=== PATIENT | male | born 1940 | race Caucasian/White ===

== ENCOUNTER → 2017-09-18 11:16 | Outpatient (CLI) | payer MEDICARE, OTHER, SELFPAY ==
--- NOTE | 2017-09-18 | DI.RAD.S_ITS ---
PROCEDURE: XR CERVICAL SPINE 2V OR 3V INDICATIONS: CERVICALGIA TECHNIQUE: 3 view(s) of the cervical spine were acquired. COMPARISON: None. FINDINGS: Bones: No fractures or dislocations to the C7 level. The lateral masses of C1 appear intact on the odontoid view. Lateral masses more distally appear markedly hypertrophic, left greater than right. There is slight anterolisthesis at C4-5. Degenerative disc disease and spondylosis C5-6 and C6-7. No suspicious bony lesions. Soft tissues: No prevertebral soft tissue swelling. Mild carotid artery calcifications. IMPRESSION: Degenerative cervical spine disease, most marked at C5-6 and C6-7, slight anterolisthesis at C4-5. Dictated by: John Adam M.D. on 09/18/2017 at 11:49 Approved by: John Adam M.D. on 09/18/2017 at 11:51
== END ==
PROVIDERS: PCP Internal Medicine; Visit Provider Internal Medicine
DX: M50.322 Other cervical disc degeneration at C5-C6 level (principal); M43.12 Spondylolisthesis, cervical region
CPT/HCPCS: 72040

== ENCOUNTER 2020-12-21 12:25 | Emergency (ER) | payer MEDICARE, OTHER, SELFPAY ==
[2020-12-21 12:31] VITALS: BP 147/77; PULSE 83; PULSE 98; RESP 19; TEMP 36.6; O2SAT 95; O2SAT 96; BMI 26.6
[2020-12-21 12:32] VITALS: BP 147/77; PULSE 94; O2SAT 96
[2020-12-21] MEDS: ACETAMINOPHEN 325 MG TABLET 975 MG PO (12:43)
[2020-12-21] MEDS: methylPREDNISolone 125 MG/2 ML VIAL IV (12:44)
--- NOTE | 2020-12-21 12:44 | ED.ALLEREA ---
HPI - Allergic Reaction General Chief complaint: Allergic Reaction Stated complaint: Stung by hornets- severely allergic Time Seen by Provider: 12/21/20 12:34 History of Present Illness HPI narrative: Patient is an 80-year-old male who presents after multiple hornet stings. He says previously he has had allergic reaction to it but does not sound like it was anaphylaxis. He was outside hiking he bent down to look at a mushroom when he got stung at least 6 times. The event happened about 20 minutes ago. He still had some stingers in him which have been pulled. He has no difficulty swallowing he has no lip swelling no tongue swelling overall is feeling okay. He is having some mild pain. Denies any chest pain palpitations or shortness of breath. Related Data Allergies Allergy/AdvReac Type Severity Reaction Status Date / Time simvastatin [SIMVASTATIN] AdvReac Mild NAUSEA Verified 12/21/20 12:41 Review of Systems Review of Systems Narrative: GENERAL: Denies chills, fatigue, malaise, fever, sweats, travel HEENT: Denies sinus pain, ear pain, sore throat, difficulty swallowing, neck pain RESPIRATORY: Denies dyspnea, cough, wheezing, hemoptysis, sputum. CARDIOVASCULAR: Denies chest pain, palpitations, orthopnea, edema GASTROINTESTINAL: Denies nausea, vomiting, abdominal pain, diarrhea, constipation, melena. : Denies dysuria, frequency, incontinence, hematuria, urinary retention, flank pain. MUSCULOSKELETAL: Denies weakness, joint pain, or bony pain SKIN: Multiple bee sting NEUROLOGIC: Denies weakness, dizziness, headache, numbness, change in speech, confusion PSYCHIATRIC: No concerning psychosocial issues. 12 point review of systems is negative except for those stated above and HPI Patient History Social History Smoking Status: Unknown if ever smoked Exam Initial Vital Signs Initial Vital Signs: Vital Signs Temperature 97.8 F 12/21/20 12:31 Pulse Rate 83 12/21/20 12:31 Respiratory Rate 19 12/21/20 12:31 Blood Pressure 147/77 H 12/21/20 12:31 Pulse Oximetry 95 12/21/20 12:31 GENERAL: Alert well-appearing 80-year-old maleand in no acute distress. HEENT: Head atraumatic,EOMI, pupils reactive, face symmetric, moist mucous membranes, no visualized lip swelling tongue swelling CARDIOVASCULAR: Regular rate and rhythm without murmurs, rubs or gallops. RESPIRATORY: Breath sounds equal bilaterally, no wheezes rales or rhonchi. No stridor ABDOMEN: Soft, nontender. Normoactive bowel sounds all 4 quadrants. No guarding or rebound. EXTREMITIES: Normal range of motion, no clubbing or edema. Neurovascularly intact NEUROLOGICAL: Alert and oriented x4.Normal gait and speech. SKIN: Stinger in the left middle finger on dorsal side distally, left upper arm sting, forehead sting Course Orders Ordered: Discontinued Medications Acetaminophen (Acetaminophen 325 Mg Tablet) 975 mg PO NOW ONE Stop: 12/21/20 12:40 Last Admin: 12/21/20 12:43 Dose: 975 mg Documented by: SAMARA Methylprednisolone (Methylprednisolone 125 Mg/2 Ml Vial) 125 mg IV NOW ONE Stop: 12/21/20 12:39 Last Admin: 12/21/20 12:44 Dose: 125 mg Documented by: SAMARA Vital Signs Vital signs: Vital Signs - 8 hr 12/21/20 12:31 12/21/20 12:32 12/21/20 13:00 Temperature 97.8 F Pulse Rate 98 H 94 H 80 Respiratory Rate 19 20 Blood Pressure 147/77 H 147/77 H 137/73 Pulse Oximetry 96 96 94 12/21/20 13:30 Temperature Pulse Rate 76 Respiratory Rate 20 Blood Pressure 139/68 Pulse Oximetry 96 MDM - Allergic Reaction MDM Narrative Medical decision making narrative: Patient is monitored in the emergency department no sign of anaphylaxis. He is given Tylenol for pain and 1 dose of Solu-Medrol to help with some minimal swelling at sting or sites this time feels ready and able to go home. Discharge Plan Departure Patient Disposition: Home Clinical Impression: Accidental bee sting Instructions: DI for Insect Bites and Stings Activity Restrictions/Additional Instructions: *You have been diagnosed with multiple bee sting *What to do: At this time no sign of severe allergic reaction. Please continue to monitor. You may notice some swelling and redness at sites of stings. May put ice on 20-30 minutes at a time. *Continue to take medications as directed Tylenol 650 mg every 4-6 hours if needed for [id number] pain Benadryl 25mg every 6 hours if needed for itching *Follow up with your primary care provider in 2-3 days *Return to ER if you should have increasing swelling, redness, difficulty breathing lip swelling tongue swelling difficulty swallowing or any new, worsening or concerning symptoms Referrals: Osbaldo Pitts MD [Primary Care Provider] -
[2020-12-21 13:00] VITALS: BP 137/73; PULSE 80; RESP 20; O2SAT 94
[2020-12-21 13:30] VITALS: BP 139/68; PULSE 76; RESP 20; O2SAT 96
--- NOTE | 2020-12-21 13:42 | PC.NURSE ---
pt was discharged in [facility].
== END 2020-12-21 13:42 | disposition home or self-care (01) ==
PROVIDERS: Emergency Provider Emergency Medicine; PCP Internal Medicine
DX: T63.441A Toxic effect of venom of bees, accidental (unintentional), initial encounter (principal)
CPT/HCPCS: 36415; 96374; 99284; J2930

== ENCOUNTER → 2021-08-03 08:35 | Outpatient (CLI) | payer MEDICARE, BC, SELFPAY ==
[2021-08-03 09:20] LABS: Hematocrit 42.7 % (41-53); Hemoglobin 14.6 g/dL (13.5-17.5); Mean Corpuscular HGB Conc 34.3 % (30-36); Mean Corpuscular Hemoglobin 30.2 PG (26-34); Mean Corpuscular Volume 88.3 fL (80-100); Platelet Count 253 X10^3/uL (150-400); Red Blood Cell Count 4.83 X10^6/uL (4.5-5.9); Red Cell Distribution Width 13.2 % (11.6-14.8); White Blood Cell Count 8.5 X10^3/uL (4.5-11.0)
[2021-08-03 09:46] LABS: Alanine Aminotransferase 20 IU/L (<50); Albumin 4.1 g/dL (3.5-5.0); Albumin Globulin Ratio 1.5 (1.0-2.8); Alkaline Phosphatase 67 U/L (38-126); Aspartate Aminotransferase 27 IU/L (17-59); BUN Creatinine Ratio 21.6 (6-22); Bilirubin Total 0.6 mg/dL (0.2-1.3); Blood Urea Nitrogen 25 mg/dL (9-20); Calcium 8.7 mg/dL (8.4-10.2); Carbon Dioxide 27 mmol/L (22-32); Chloride 106 mmol/L (98-107); Cholesterol 135 mg/dL (140-199); Estimated Glomerular Filt Rate > 60 mL/min (>60); Globulin 2.7 g/dL (1.7-4.1); Glucose 94 mg/dL (80-110); HDL Cholesterol 39 mg/dL (40-60); LDL Cholesterol Calculated 82 mg/dL (<100); Potassium 4.3 mmol/L (3.4-5.1); Sodium 140 mmol/L (137-145); Total Protein 6.8 g/dL (6.3-8.2); Triglycerides 68 mg/dL (35-150)
[2021-08-03 09:48] LABS: HEMOLYSIS 61 (0-50)
[2021-08-03 10:04] LABS: TSH w/ Reflex to FT4 1.41 uIU/mL (0.47-4.68)
== END ==
PROVIDERS: PCP Internal Medicine; Referring Provider Internal Medicine; Visit Provider Internal Medicine
DX: I10 Essential (primary) hypertension (principal); E78.2 Mixed hyperlipidemia; N13.8 Other obstructive and reflux uropathy; N40.1 Benign prostatic hyperplasia with lower urinary tract symptoms
CPT/HCPCS: 36415; 80053; 80061; 84443; 85027

== ENCOUNTER → 2022-02-07 16:20 | Outpatient (CLI) | payer MEDICARE, BC, SELFPAY ==
[2022-02-07 17:10] LABS: Hematocrit 45.2 % (41-53); Hemoglobin 15.4 g/dL (13.5-17.5); Mean Corpuscular HGB Conc 34.1 % (30-36); Mean Corpuscular Hemoglobin 29.9 PG (26-34); Mean Corpuscular Volume 87.5 fL (80-100); Platelet Count 288 X10^3/uL (150-400); Red Blood Cell Count 5.17 X10^6/uL (4.5-5.9); Red Cell Distribution Width 13.3 % (11.6-14.8); White Blood Cell Count 7.8 X10^3/uL (4.5-11.0)
[2022-02-07 17:19] LABS: Alanine Aminotransferase 42 IU/L (<50); Albumin 4.4 g/dL (3.5-5.0); Albumin Globulin Ratio 1.6 (1.0-2.8); Alkaline Phosphatase 86 U/L (38-126); Amylase 64 U/L (30-110); Aspartate Aminotransferase 33 IU/L (17-59); BUN Creatinine Ratio 16.3 (6-22); Bilirubin Total 0.9 mg/dL (0.2-1.3); Blood Urea Nitrogen 23 mg/dL (9-20); Calcium 8.9 mg/dL (8.4-10.2); Carbon Dioxide 28 mmol/L (22-32); Chloride 100 mmol/L (98-107); Estimated Glomerular Filt Rate 50 mL/min (>60); Globulin 2.8 g/dL (1.7-4.1); Glucose 104 mg/dL (80-110); HEMOLYSIS < 15 (0-50); Lipase 73 U/L (23-300); Potassium 3.8 mmol/L (3.4-5.1); Sodium 140 mmol/L (137-145); Total Protein 7.2 g/dL (6.3-8.2)
== END ==
PROVIDERS: PCP Internal Medicine; Referring Provider Internal Medicine; Visit Provider Internal Medicine
DX: R11.0 Nausea (principal)
CPT/HCPCS: 80053; 82150; 83690; 85027

== ENCOUNTER 2022-02-14 14:35 | Emergency (ER) | payer MEDICARE, BC, SELFPAY ==
[2022-02-14] VITALS (10 sets, daily range): BP systolic 117–138; BP diastolic 58–68; PULSE 70–82; RESP 15–40; TEMP 36.5; O2SAT 96–100; BMI 25.4
--- NOTE | 2022-02-14 14:54 | DI.RAD.S_ITS ---
PROCEDURE: XR CHEST 1V INDICATIONS: lightheadedness TECHNIQUE: One view of the chest was acquired. COMPARISON: None. FINDINGS: Surgical changes and devices: None. Lungs and pleura: Lungs are clear. No pleural effusions or pneumothorax. Mediastinum: Mediastinal contours appear normal. Heart size is normal. Bones and chest wall: No suspicious bony lesions. Overlying soft tissues appear unremarkable. IMPRESSION: Normal for age, source of current lightheadedness symptoms is not seen. Dictated by: Shola Yost M.D. on 02/14/2022 at 15:53 Approved by: Shola Yost M.D. on 02/14/2022 at 15:54
--- NOTE | 2022-02-14 15:00 | DI.RAD.S_ITS ---
PROCEDURE: XR KUB INDICATIONS: constipation TECHNIQUE: One view of the abdomen acquired. COMPARISON: None. FINDINGS: Surgical changes and devices: None. Bowel: Bowel gas pattern is normal except for mild generalized colonic obstipation. Soft tissues: No suspicious abdominal calcifications. Visualized solid organ contours appear normal in size. Bones: No suspicious bony lesions. IMPRESSION: Mild generalized colonic obstipation. No obstruction suspected. Dictated by: Shola Yost M.D. on 02/14/2022 at 15:54 Approved by: Shola Yost M.D. on 02/14/2022 at 15:54
[2022-02-14] MEDS: FLEETS ENEMA 1 EACH PR (16:23)
--- NOTE | 2022-02-14 16:26 | ED_ITS ---
HPI - Abdominal Pain General Chief Complaint: Dizziness Stated Complaint: constipation x2 wks, low BP, dizziness Time Seen by Provider: 02/14/22 14:53 Source: patient Mode of arrival: Ambulatory History of Present Illness HPI narrative: 81-year-old male presenting with constipation in the setting of recent viral syndrome with taking multiple doses of ondansetron for a prolonged period of time. Patient reports that he has had only small volume hard stools over the last several days, no significant stool in the last 2 weeks. No significant abdominal pain. Patient called in to his outpatient provider and referred him to the emergency department. Patient also reports that he has had intermittently low blood pressures at home, patient arrives with normal range blood pressures. No syncope or vertiginous symptoms noted. Patient does report he is felt intermittently lightheaded. Related Data Home Medications Medication Instructions Recorded Confirmed omeprazole magnesium 20 mg 20 mg PO DAILY 08/02/21 02/07/22 tablet,delayed release (Prilosec OTC) Previous Rx's Medication Instructions Recorded rosuvastatin 10 mg tablet 10 mg PO DAILY #90 tabs 08/02/21 tamsulosin 0.4 mg capsule 0.4 mg PO BEDTIME #90 caps 08/02/21 valsartan 320 1 tab PO DAILY #90 tabs 08/02/21 mg-hydrochlorothiazide 25 mg tablet ondansetron 4 mg disintegrating 4 mg PO Q8H PRN nausea and 02/07/22 tablet vomiting #20 tabs Allergies Allergy/AdvReac Type Severity Reaction Status Date / Time simvastatin [SIMVASTATIN] AdvReac Mild NAUSEA Verified 02/14/22 14:43 Review of Systems Review of Systems Narrative: Constitutional, Eyes, ENT, Pulmonary, Cardiovascular, Gastrointestinal, Renal, Endocrine, Genitourinary, Musculoskeletal, Neurologic, Skin, and Psychiatric systems were reviewed and negative unless indicated in the HPI above. 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 Nursing note reviewed Constitutional: interactive HENT: Moist mucous membranes EYES: No scleral icterus NECK: no masses CV: Well perfused peripherally, no cyanosis present PULM: Unlabored respirations, symmetric chest rise ABD: Non-distended Rectal: No hard stool ball in the rectal vault noted MS: No gross deformities, no asymmetric edema noted SKIN: Warm and dry. PSYCH: Appropriate affect NEURO: Follows simple commands, moves extremities, interactive with exam Initial Vital Signs Initial Vital Signs: Vital Signs Temperature 97.7 F 02/14/22 14:43 Pulse Rate 82 02/14/22 14:43 Respiratory Rate 19 02/14/22 14:43 Blood Pressure 126/68 02/14/22 14:43 Pulse Oximetry 97 02/14/22 14:43 Oxygen Delivery Method 02/14/22 14:43 Course Orders Ordered: Discontinued Medications Sodium Chloride (Normal Saline 0.9%) 1,000 mls @ 150 mls/hr IV CONT KOTA Magnesium Citrate (Magnesium Citrate 300 Ml Solution) 150 ml PO NOW ONE Stop: 02/14/22 15:02 Last Admin: 02/14/22 16:24 Dose: Not Given Documented By: NR Sodium Biphosphate/Sodium Phosphate (Fleets Enema) 1 each OK NOW ONE Stop: 02/14/22 15:02 Last Admin: 02/14/22 16:23 Dose: 1 each Documented By: NR Vital Signs Vital signs: Vital Signs - 8 hr 02/14/22 14:43 Temperature 97.7 F Pulse Rate 82 Respiratory Rate 19 Blood Pressure 126/68 Pulse Oximetry 97 Oxygen Delivery Method Room Air MDM - Abdominal Pain Lab Data Result diagrams: 02/14/22 15:50 02/14/22 15:50 Labs: Lab Results 02/14/22 02/14/22 02/14/22 Range/Units 15:50 15:50 15:50 WBC 15.0 H (4.5-11.0) X10^3/uL RBC 4.70 (4.5-5.9) X10^6/uL Hgb 13.9 (13.5-17.5) g/dL Hct 40.8 L (41-53) % MCV 86.9 (80-100) fL MCH 29.5 (26-34) PG MCHC 34.0 (30-36) % RDW 12.9 (11.6-14.8) % Plt Count 282 (150-400) X10^3/uL Neut % (Auto) 82.1 H (50-75) % Lymph % (Auto) 9.8 L (25-40) % [place] % (Auto) 7.0 (3-14) % Eos % (Auto) 0.8 L (2-4) % Baso % (Auto) 0.3 (0-2) % Neut # (Auto) 06282 H (0529-3997) /uL Lymph # (Auto) 1500 (4512-6649) /uL [place] # (Auto) 1100 H (0-900) /uL Eos # (Auto) 100 (0-450) /uL Baso # (Auto) 0 (0-100) /uL Sodium 138 (137-145) mmol/L Potassium 3.8 (3.4-5.1) mmol/L Chloride 104 (98-107) mmol/L Carbon Dioxide 24 (22-32) mmol/L BUN 26 H (9-20) mg/dL Creatinine 1.18 (0.66-1.25) mg/dL Estimated GFR > 60 (>60) mL/min BUN/Creatinine Ratio 22.0 (6-22) Glucose 83 (80-110) mg/dL Calcium 8.7 (8.4-10.2) mg/dL Total Bilirubin 0.7 (0.2-1.3) mg/dL AST 22 (17-59) IU/L ALT 24 (<50) IU/L Alkaline Phosphatase 76 (38-126) U/L Troponin I < 0.012 (0.01-0.034) ng/mL Total Protein 6.7 (6.3-8.2) g/dL Albumin 4.1 (3.5-5.0) g/dL Globulin 2.6 (1.7-4.1) g/dL Albumin/Globulin Ratio 1.6 (1.0-2.8) MDM Narrative Medical decision making narrative: 81-year-old male presenting with concern for constipation in the setting of recent viral syndrome and recurrent doses of ondansetron. Vital signs were reassuring on presentation. Physical exam notable for a well-appearing 81-year-old male who is in no acute distress, with reassuring cardiopulmonary and abdominal exam. Initial concern for constipation in the setting of medication effect, occult obstruction, electrolyte derangement, intra-abdominal surgical pathology. Patient with benign abdominal exam on initial presentation, several days of symptoms arguing against acute intra-abdominal pathology. Patient has been taking ondansetron recently concerning for a medication effect waiting to constipation. X-ray chest and abdomen notable for obstipation. Screening labs notable for leukocytosis to 15,000 without clear etiology. Reassuring CMP as above. Discussed findings with patient at bedside. On repeat evaluation, patient continues to have benign abdominal exam, no active symptoms while in the emergency department. Discussed plan for trial of enema and disimpaction. Patient underwent disimpaction in the emergency department, however, patient did not have significant stool in the rectal vault. Discussed the plan for titrating stool regimen with initiation of MiraLax and trial of magnesium citrate. Patient was instructed to take 1 capful of MiraLax in the morning and evening, trial 1 bottle of magnesium citrate. Given patient has no other active symptoms in the emergency department, discussed plan for discharge and close outpatient follow- up. Patient is instructed to stop taking ondansetron. Return precautions discussed. Patient is subsequently discharged in stable condition. Discharge Plan Departure Patient Disposition: Home Clinical Impression: Constipation Instructions: DI for Constipation Activity Restrictions/Additional Instructions: *You have been diagnosed with [ ] *What to do: Please start taking miralax and magnesium citrate as discussed. Please use one capful of miralax powder in water in the morning and evening, titrate to 1-2 soft bowel movements per day. Please take one bottle of magnesium citrate this evening or tomorrow AM as discussed. This medication should not need to be repeated. *Please follow up with your primary care provider in 2-3 days, call for an appointment. Let them know you were seen in the Emergency Department and that we ask that you be seen in follow up. We will electronically transmit a record of today's note if your PCP is in our system *Return to Emergency Department if you should have any new, worsening or concerning symptoms, such as [fever greater than 101 F, shaking chills, worsening pain, persistent vomiting or other bothersome symptoms] Prescriptions: No Action omeprazole magnesium [Prilosec OTC] 20 mg tablet,delayed release (DR/EC) 20 mg PO DAILY tamsulosin 0.4 mg capsule 0.4 mg PO BEDTIME Qty: 90 3RF rosuvastatin 10 mg tablet 10 mg PO DAILY Qty: 90 3RF valsartan-hydrochlorothiazide 320-25 mg tablet 1 tab PO DAILY Qty: 90 3RF ondansetron 4 mg tablet,disintegrating 4 mg PO Q8H PRN (Reason: nausea and vomiting) Qty: 20 2RF Referrals: Armaan Bender MD [Primary Care Provider] - Visit Report Forms: Patient Portal/API
[2022-02-14 16:31] LABS: Alanine Aminotransferase 24 IU/L (<50); Albumin 4.1 g/dL (3.5-5.0); Albumin Globulin Ratio 1.6 (1.0-2.8); Alkaline Phosphatase 76 U/L (38-126); Aspartate Aminotransferase 22 IU/L (17-59); Bilirubin Total 0.7 mg/dL (0.2-1.3); Blood Urea Nitrogen 26 mg/dL (9-20); Calcium 8.7 mg/dL (8.4-10.2); Carbon Dioxide 24 mmol/L (22-32); Chloride 104 mmol/L (98-107); Estimated Glomerular Filt Rate > 60 mL/min (>60); Globulin 2.6 g/dL (1.7-4.1); Glucose 83 mg/dL (80-110); HEMOLYSIS 26 (0-50); Potassium 3.8 mmol/L (3.4-5.1); Sodium 138 mmol/L (137-145); Total Protein 6.7 g/dL (6.3-8.2)
[2022-02-14 16:34] LABS: Add Manual Diff / Slide Review NO; Basophils Absolute Auto 0 /uL (0-100); Basophils Percent Auto 0.3 % (0-2); Eosinophils Absolute Auto 100 /uL (0-450); Eosinophils Percent Auto 0.8 % (2-4); Hematocrit 40.8 % (41-53); Hemoglobin 13.9 g/dL (13.5-17.5); Lymphocytes Absolute Auto 1500 /uL (1100-4500); Lymphocytes Percent Auto 9.8 % (25-40); Mean Corpuscular Hemoglobin 29.5 PG (26-34); Mean Corpuscular Volume 86.9 fL (80-100); Monocytes Absolute Auto 1100 /uL (0-900); Neutrophils Absolute Auto 12300 /uL (1500-7000); Neutrophils Percent Auto 82.1 % (50-75); Platelet Count 282 X10^3/uL (150-400); Red Cell Distribution Width 12.9 % (11.6-14.8)
[2022-02-14 16:43] LABS: Troponin I < 0.012 ng/mL (0.01-0.034)
--- NOTE | 2022-02-14 17:01 | PC.NURSE ---
pt is here with c/o slight dizziness but mainly that he has no had a BM in 14days, since he saw his pcp. he has done some fleets enemas at home and this has not worked. pt states that he had a marble size very hard BM this morning but that is all. he is eating and drinking like normal.
== END 2022-02-14 17:28 | disposition home or self-care (01) ==
PROVIDERS: Emergency Provider Emergency Medicine; PCP Internal Medicine
DX: K59.00 Constipation, unspecified (principal); R42 Dizziness and giddiness
CPT/HCPCS: 71045; 74018; 80053; 84484; 85025; 93005; 93010; 99283; 99284

== ENCOUNTER → 2022-08-04 10:54 | Outpatient (CLI) | payer MEDICARE, BC, SELFPAY ==
[2022-08-04 12:51] LABS: Hematocrit 40.6 % (41-53); Hemoglobin 13.9 g/dL (13.5-17.5); Mean Corpuscular HGB Conc 34.2 % (30-36); Mean Corpuscular Hemoglobin 29.9 PG (26-34); Mean Corpuscular Volume 87.4 fL (80-100); Platelet Count 225 X10^3/uL (150-400); Red Blood Cell Count 4.65 X10^6/uL (4.5-5.9); Red Cell Distribution Width 13.4 % (11.6-14.8); White Blood Cell Count 8.1 X10^3/uL (4.5-11.0)
[2022-08-04 13:23] LABS: Alanine Aminotransferase 19 IU/L (<50); Albumin 3.9 g/dL (3.5-5.0); Albumin Globulin Ratio 1.8 (1.0-2.8); Alkaline Phosphatase 76 U/L (38-126); Aspartate Aminotransferase 21 IU/L (17-59); BUN Creatinine Ratio 17.5 (6-22); Bilirubin Total 0.6 mg/dL (0.2-1.3); Blood Urea Nitrogen 20 mg/dL (9-20); Calcium 9.1 mg/dL (8.4-10.2); Carbon Dioxide 28 mmol/L (22-32); Chloride 105 mmol/L (98-107); Cholesterol 133 mg/dL (140-199); Estimated Glomerular Filt Rate > 60 mL/min (>60); Globulin 2.2 g/dL (1.7-4.1); Glucose 88 mg/dL (80-110); HDL Cholesterol 44 mg/dL (40-60); HEMOLYSIS < 15 (0-50); LDL Cholesterol Calculated 78 mg/dL (<100); Potassium 4.2 mmol/L (3.4-5.1); Sodium 139 mmol/L (137-145); Total Protein 6.1 g/dL (6.3-8.2); Triglycerides 54 mg/dL (35-150)
== END ==
PROVIDERS: PCP Internal Medicine; Referring Provider Internal Medicine; Visit Provider Internal Medicine
DX: E78.2 Mixed hyperlipidemia (principal); I10 Essential (primary) hypertension
CPT/HCPCS: 36415; 80053; 80061; 85027

== ENCOUNTER → 2023-07-21 16:27 | Outpatient (CLI) | payer MEDICARE, BC, SELFPAY ==
--- NOTE | 2023-07-21 16:29 | DI.RAD.S_ITS ---
PROCEDURE: XR SHOULDER RT MIN 2V INDICATIONS: right shoulder pain TECHNIQUE: 3 views of the shoulder were acquired. COMPARISON: None. FINDINGS: Bones: No fractures or dislocations. Moderate degenerative changes at the AC joint. No suspicious bony lesions. Visualized ribs appear intact. Soft tissues: No suspicious soft tissue calcifications. IMPRESSION: Moderate degenerative changes at the right AC joint. Dictated by: Leeroy Robles M.D. on 07/22/2023 at 9:44 Approved by: Leeroy Robles M.D. on 07/22/2023 at 9:45
== END ==
PROVIDERS: PCP Internal Medicine; Referring Provider Internal Medicine; Visit Provider Internal Medicine
DX: M25.511 Pain in right shoulder (principal)
CPT/HCPCS: 73030

== ENCOUNTER → 2023-07-31 11:06 | Outpatient (CLI) | payer MEDICARE, BC, SELFPAY ==
--- NOTE | 2023-07-31 11:07 | DI.MRI.S_ITS ---
PROCEDURE: MR SHOULDER RT WO CON INDICATIONS: right shoulder pain TECHNIQUE: Noncontrast oblique coronal T2 fast spin echo with fat saturation, oblique sagittal T1 spin echo and T2 fast spin echo with fat saturation, axial T1 spin echo and T2 fast spin echo with fat saturation through the shoulder. COMPARISON: [facility], CR, XR SHOULDER RT MIN 2V, 07/21/2023, 15:36. FINDINGS: Image quality: Excellent. Rotator cuff: In the supraspinatus, there is low-grade interstitial tear at the anterior footprint, superimposed on mild tendinosis. The infraspinatus is unremarkable. The teres minor is unremarkable. The subscapularis is unremarkable. No muscle edema or fatty atrophy. Bones and bursae: Moderate degenerative change of the acromioclavicular joint. Type 4 acromion. No os acromiale. Mild subacromial/subdeltoid bursitis. No focal chondral defects of the glenohumeral joint. No acute fracture. There is small area cortical irregularity of the posterior aspect of the greater tuberosity, nonspecific and likely represent prior injury. No associated marrow edema. Capsule and soft tissues: Labral degeneration. Tear of the anterior superior labrum. Tear of the inferior posterior labrum, with a 7 mm paralabral cyst. The extra-articular biceps tendon is unremarkable. The intra-articular biceps tendon is unremarkable as well. No significant glenohumeral effusion. No intra-articular body. IMPRESSION: 1. Low-grade tear of the supraspinatus. 2. Moderate degenerative changes of the acromioclavicular joint. 3. Prior injury of the posterior aspect of the greater tuberosity with cortical irregularity and no associated marrow edema. 4. Labral tear with a 7 mm paralabral cyst about the inferior posterior labrum. Dictated by: Emilie Correa M.D. on 08/01/2023 at 13:43 Approved by: Emilie Correa M.D. on 08/01/2023 at 13:51
== END ==
PROVIDERS: PCP Internal Medicine; Referring Provider Internal Medicine; Visit Provider Internal Medicine
DX: M75.111 Incomplete rotator cuff tear or rupture of right shoulder, not specified as traumatic (principal); M25.511 Pain in right shoulder; S43.431A Superior glenoid labrum lesion of right shoulder, initial encounter
CPT/HCPCS: 73221

== ENCOUNTER → 2023-08-11 13:13 | Outpatient (CLI) | payer MEDICARE, BC, SELFPAY ==
--- NOTE | 2023-08-11 13:14 | DI.RAD.S_ITS ---
PROCEDURE: FL SHOULDER INJECTION MR/CT RT INDICATIONS: Pain in right shoulder COMPARISON: None. TECHNIQUE: The indications, alternatives, benefits, risks, and complications of the procedure were explained to the patient. Written informed consent was obtained and placed in the chart. The shoulder was examined fluoroscopically and a site for needle placement chosen for entry into the glenohumeral joint from an anterior approach. The skin was prepped and draped in a sterile fashion, and 1% lidocaine infiltrated from skin down to joint capsule. A spinal needle was inserted into the glenohumeral joint, and a small amount of iodinated contrast media injected to confirm intra-articular placement of the needle tip. This was followed by approximately 12 mL dilute solution of a gadolinium containing MR contrast agent. The needle was removed and a dressing was applied. The patient was given postprocedural instructions and sent to the MR suite for MR imaging. FINDINGS: A single fluoroscopic spot image demonstrates intra-articular location of injected iodinated contrast. IMPRESSION: Successful fluoroscopically guided administration of dilute Gadolinium solution into the shoulder joint for MR arthrogram. Dictated by: Leonidas Pablo M.D. on 08/11/2023 at 15:12 Approved by: Leonidas Pablo M.D. on 08/11/2023 at 15:12
--- NOTE | 2023-08-11 13:15 | DI.MRI.S_ITS ---
PROCEDURE: MR SHOULDER RT W CON INDICATIONS: Pain in right shoulder TECHNIQUE: After the administration of 12 mL of dilute intra-articular Gadolinium contrast, oblique coronal T1 and T2 spin echo with fat saturation, oblique sagittal T1 spin echo with and without fat saturation, oblique sagittal T2 fast spin echo with fat saturation, axial T1 spin echo with fat saturation through the shoulder. COMPARISON: [facility], MR, MR SHOULDER RT WO CON, 07/31/2023, 11:20. FINDINGS: Image quality: Excellent. Rotator cuff: The supraspinatus, there is combined, low grade interstitial tear of the critical zone of the mid fiber, and low-grade, low-grade interstitial tear at the footprint of the mid fibers (series 7, image 11 the). The infraspinatus is unremarkable. The teres minor is unremarkable. The subscapularis is unremarkable. No muscle atrophy or muscle edema. Bones and bursae: Mild degenerative changes of the acromioclavicular joint. Type 1 acromion. No os acromiale. Mild subacromial/subdeltoid bursitis. No contrast extravasation in the subacromial/subdeltoid bursa. No acute fracture. Small cortical irregularity in the superior posterior humeral head, measuring 1.3 x 0.3 cm (length by depth), without associated marrow edema, which may represent a chronic Hill-Sachs deformity. No acute fracture. High-grade chondral thinning in the inferior glenoid. Capsule and soft tissues: Labral degeneration. Tear of the superior labrum, extending anteriorly to the anterior superior labrum. 6 mm paralabral cyst about the posterior inferior labrum, suggestive of of posterior inferior labral tear. The extra-articular biceps tendon is unremarkable. Mild tendinosis of the intra-articular biceps tendon. Injected contrast distends the glenohumeral joint. No intra-articular body. IMPRESSION: 1. Low-grade tear of the supraspinatus. 2. 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 Recommend correlation with patient's history of shoulder dislocation. 3. Mild chondrosis of the glenohumeral joint. 4. Labral tear with 6 mm paralabral cyst about the posterior inferior labrum. Dictated by: Emilie Correa M.D. on 08/11/2023 at 21:10 Approved by: Emilie Correa M.D. on 08/11/2023 at 21:28
[2023-08-11] MEDS: LIDOCAINE 1% 20 ML INJ (14:08)
[2023-08-11] MEDS: SODIUM CHLORIDE 0.9 % 20 ML VIAL IV (14:09)
== END ==
PROVIDERS: PCP Internal Medicine; Referring Provider Internal Medicine; Visit Provider Internal Medicine
DX: M75.111 Incomplete rotator cuff tear or rupture of right shoulder, not specified as traumatic (principal); S43.431A Superior glenoid labrum lesion of right shoulder, initial encounter; M94.211 Chondromalacia, right shoulder; M25.511 Pain in right shoulder
CPT/HCPCS: 23350; 73040; 73222; A9579; Q9967

== ENCOUNTER → 2023-08-26 15:37 | Outpatient (CLI) | payer MEDICARE, BC, SELFPAY ==
[2023-08-26 17:36] LABS: Aspartate Aminotransferase 21 IU/L (17-59); BUN Creatinine Ratio 19.8 (6-22); Blood Urea Nitrogen 23 mg/dL (9-20); Calcium 8.8 mg/dL (8.4-10.2); Carbon Dioxide 26 mmol/L (22-32); Chloride 109 mmol/L (98-107); Cholesterol 143 mg/dL (140-199); Estimated Glomerular Filt Rate > 60 mL/min (>60); Glucose 104 mg/dL (80-110); HDL Cholesterol 51 mg/dL (40-60); HEMOLYSIS < 15 (0-50); LDL Cholesterol Calculated 73 mg/dL (<100); Potassium 3.7 mmol/L (3.4-5.1); Sodium 139 mmol/L (137-145); Triglycerides 95 mg/dL (35-150)
== END ==
PROVIDERS: PCP Internal Medicine; Referring Provider Internal Medicine; Visit Provider Internal Medicine
DX: E78.2 Mixed hyperlipidemia (principal); I10 Essential (primary) hypertension
CPT/HCPCS: 36415; 80048; 80061; 84450

== ENCOUNTER → 2024-08-30 16:21 | Outpatient (CLI) | payer MEDICARE, BC, SELFPAY ==
[2024-08-30 17:23] LABS: Hematocrit 41.3 % (41-53); Hemoglobin 14.0 g/dL (13.5-17.5); Mean Corpuscular HGB Conc 33.9 % (30-36); Mean Corpuscular Hemoglobin 30.3 PG (26-34); Mean Corpuscular Volume 89.6 fL (80-100); Platelet Count 282 X10^3/uL (150-400)
[2024-08-30 18:22] LABS: Blood Urea Nitrogen 22 mg/dL (9-20); Calcium 8.9 mg/dL (8.4-10.2); Carbon Dioxide 26 mmol/L (22-32); Chloride 105 mmol/L (98-107); Cholesterol 135 mg/dL (140-199); Estimated Glomerular Filt Rate > 60 mL/min (>60); Glucose 127 mg/dL (70-99); HDL Cholesterol 44 mg/dL (40-60); HEMOLYSIS < 15 (0-50); Potassium 3.8 mmol/L (3.4-5.1); Sodium 140 mmol/L (137-145); Triglycerides 102 mg/dL (35-150)
[2024-08-30 18:51] LABS: TSH w/ Reflex to FT4 1.65 uIU/mL (0.47-4.68)
== END ==
PROVIDERS: PCP Internal Medicine; Referring Provider Internal Medicine; Visit Provider Internal Medicine
DX: I10 Essential (primary) hypertension (principal); E78.2 Mixed hyperlipidemia
CPT/HCPCS: 36415; 80048; 80061; 84443; 84450; 85027

== ENCOUNTER → 2024-11-09 08:43 | Outpatient (CLI) | payer MEDICARE, BC, SELFPAY ==
[2024-11-09 10:19] LABS: Hematocrit 38.1 % (41-53); Hemoglobin 13.1 g/dL (13.5-17.5); Mean Corpuscular HGB Conc 34.3 % (30-36); Mean Corpuscular Hemoglobin 30.2 PG (26-34); Mean Corpuscular Volume 87.8 fL (80-100); Platelet Count 334 X10^3/uL (150-400)
[2024-11-09 10:28] LABS: Alanine Aminotransferase 13 IU/L (<50); Albumin 3.6 g/dL (3.5-5.0); Albumin Globulin Ratio 1.6 (1.0-2.8); Blood Urea Nitrogen 24 mg/dL (9-20); Calcium 8.6 mg/dL (8.4-10.2); Carbon Dioxide 24 mmol/L (22-32); Chloride 105 mmol/L (98-107); Estimated Glomerular Filt Rate > 60 mL/min (>60); Globulin 2.2 g/dL (1.7-4.1); Glucose 99 mg/dL (70-99); HEMOLYSIS < 15 (0-50); Lipase 40 U/L (23-300); Potassium 4.2 mmol/L (3.4-5.1); Sodium 137 mmol/L (137-145); Total Protein 5.8 g/dL (6.3-8.2)
[2024-11-09 11:40] LABS: Alkaline Phosphatase 2718 U/L (38-126)
== END ==
PROVIDERS: PCP Internal Medicine; Referring Provider Internal Medicine; Visit Provider Internal Medicine
DX: R63.4 Abnormal weight loss (principal); R53.83 Other fatigue
CPT/HCPCS: 36415; 80053; 83690; 85027

== ENCOUNTER → 2024-11-10 12:55 | Outpatient (CLI) | payer MEDICARE, BC, SELFPAY ==
--- NOTE | 2024-11-10 12:57 | DI.CT.S_ITS ---
PROCEDURE: CT ABDOMEN PELVIS W CON INDICATIONS: abnormal weight loss TECHNIQUE: After the administration of intravenous contrast, axial sections acquired from the lung bases to the pubic symphysis. Coronal and sagittal reformats were performed. For radiation dose reduction, the following was used: automated exposure control, adjustment of mA and/or kV according to patient size. COMPARISON: [facility], MR, MR SHOULDER RT W CON, 08/11/2023, 14:08. [facility], RF, [place] SHOULDER INJECTION MR/CT RT, 08/11/2023, 12:43. FINDINGS: Image quality: Diagnostic. Lower Chest: Cases calcifications of the mitral valve annulus. Calcifications of the left anterior descending, and left main coronary arteries. ABDOMEN: Liver: No solid mass. Gallbladder: No radiopaque gallstones or wall thickening. Biliary ducts: No biliary dilation. Pancreas: No ductal dilation. Spleen: Size is within normal limits. Adrenal Glands: No adrenal nodules. Kidneys and Ureters: No hydronephrosis. No solid mass. No complex renal cystic lesion which requires follow up. Stomach and Bowel: Gastric fundal thickening secondary to under distention. The small bowel is normal in caliber with normal wall thickness. The large bowel is normal in caliber with normal wall thickness. Descending colon and sigmoid colon diverticulosis without diverticulitis. Peritoneum: No abnormal intraperitoneal fluid. No free air. A 3.7 cm duodenal diverticulum communicates with the proximal 3rd portion of the duodenum. Ventral Wall: No significant ventral hernia. Abdominal Nodes: Enlarged retroperitoneal and pelvic sidewall lymphadenopathy with a conglomeration of retroperitoneal periaortic nodes which measure up to 4.4 x 2.6 cm (2/81). Vessels: Aorta and inferior vena cava are normal in size. PELVIS: Pelvic Organs: Enlarged prostate with extraprostatic extension into the distal bilateral seminal vesicles (2/141). Loss of the fat plane the right peripheral prostatic lobe from the right obturator internus (2/146). The fat plane the prostate from the anterior wall of the rectum is not well visualized (2/150). Bladder: Masslike extension of the prostate into the bladder floor (5/69).. Pelvic Nodes: The largest left pelvic sidewall lymph nodes measure 4.7 cm in dimension (2/124). The largest right pelvic sidewall lymph nodes measure 4.1 cm (2/125). Miscellaneous: No inguinal hernias are seen. 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 No pathologic fracture within the inferior thoracic or lumbar spine. No pathologic fracture within the bony pelvis or proximal bilateral femurs. IMPRESSION: 1. 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 2. Enlarged retroperitoneal and bilateral pelvic sidewall lymphadenopathy, presumed metastatic. 3. Diffuse sclerotic presumed osseous metastases without pathologic fracture. Communication: The impression was conveyed to the ordering clinican within 24 hours of the time of dictation by the [facility] Call Center staff. Dictated by: Wilian Muhammad M.D. on 11/10/2024 at 15:53 Approved by: Wilian Muhammad M.D. on 11/10/2024 at 16:10
== END ==
PROVIDERS: PCP Internal Medicine; Referring Provider Internal Medicine; Visit Provider Internal Medicine
DX: N42.9 Disorder of prostate, unspecified (principal); M89.9 Disorder of bone, unspecified; R59.0 Localized enlarged lymph nodes; R63.4 Abnormal weight loss; R53.83 Other fatigue; R10.9 Unspecified abdominal pain; I34.81 Nonrheumatic mitral (valve) annulus calcification; I25.10 Atherosclerotic heart disease of native coronary artery without angina pectoris; K57.30 Diverticulosis of large intestine without perforation or abscess without bleeding; K57.10 Diverticulosis of small intestine without perforation or abscess without bleeding
CPT/HCPCS: 74177; Q9967

== ENCOUNTER → 2024-11-24 13:07 | Outpatient (CLI) | payer MEDICARE, BC, SELFPAY | PROVIDERS: PCP Internal Medicine; Visit Provider Urology | DX: N40.1 Benign prostatic hyperplasia with lower urinary tract symptoms (principal); N13.8 Other obstructive and reflux uropathy | CPT/HCPCS: 87086 ==